=== PATIENT | female | born 1990 | race African-American/Black ===

== ENCOUNTER 2019-07-20 22:43 | Emergency (ER) | payer BC ==
[~2019-07-20] VITALS: Ht 172.7 cm; Wt 90.7 kg
[2019-07-20 23:05] VITALS: BP 131/76
[2019-07-20] MEDS ORDERED: TETRACAINE 0.5% OPHTH SOLUTION 4ML BOTTLE. OS STA (23:53)
[2019-07-20] MEDS ORDERED: FLUORESCEIN OPHTH TEST STRIP. OS STA (23:53)
--- NOTE | 2019-07-20 23:57 | PHYS DOC ---
Past Medical History Past Medical History: No Pertinent History Past Surgical History: No Surgical History Alcohol Use: Occasionally Drug Use: None Adult General Chief Complaint Chief Complaint: EYE PROBLEMS HPI HPI Patient is a 29 year old female that presents with left eye watering. The patient states that over the last 2 week she's not been no's keeper often watering. 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 She states it felt like he was getting better and has been coming and going but then earlier today of 72 got really bad and she feels that her something in her eye. Patient does not wear contacts. Review of Systems Review of Systems Constitutional: Denies fever or chills [] Eyes: Denies change in visual acuity, but reports redness and foreign body feeling. HENT: Denies nasal congestion or sore throat [] Respiratory: Denies cough or shortness of breath [] Cardiovascular: No additional information not addressed in HPI [] GI: Denies abdominal pain, nausea, vomiting, bloody stools or diarrhea [] : Denies dysuria or hematuria [] Musculoskeletal: Denies back pain or joint pain [] Integument: Denies rash or skin lesions [] Neurologic: Denies headache, focal weakness or sensory changes [] Endocrine: Denies polyuria or polydipsia [] Complete systems were reviewed and found to be within normal limits, except as documented in this note. Current Medications Current Medications Current Medications Medications (Trade) Dose Ordered Sig/Lior Start Time Stop Time Status Last Admin Dose Admin Fluorescein Sodium (Ful-Libra) 1 strip 1X STAT 07/20/19 23:53 07/20/19 23:54 UNV 07/21/19 00:07 1 STRIP Tetracaine HCl (Tetracaine) 1 drop 1X STAT 07/20/19 23:53 07/20/19 23:54 UNV 07/21/19 00:07 1 DROP Physical Exam Physical Exam Constitutional: Well developed, well nourished, no acute distress, non-toxic appearance. [] HENT: Normocephalic, atraumatic, bilateral external ears normal, oropharynx moist, no oral exudates, nose normal. [] Eyes: PERRLA, EOMI, left conjunctiva is red, no discharge. No corneal abrasion has small stye to the left lower eyelid. Neck: Normal range of motion, no tenderness, supple, no stridor. [] Skin: Warm, dry, no erythema, no rash. [] Back: No tenderness, no CVA tenderness. [] Extremities: No tenderness, no cyanosis, no clubbing, ROM intact, no edema. [] Neurologic: Alert and oriented X 3, normal motor function, normal sensory function, no focal deficits noted. [] Psychologic: Affect normal, judgement normal, mood normal. [] Current Patient Data Vital Signs Vital Signs Date Time Temp Pulse Resp B/P (MAP) Pulse Ox O2 Delivery O2 Flow Rate FiO2 07/20/19 23:05 98.6 70 16 131/76 (94) 96 Room Air 98.6 EKG EKG [] Radiology/Procedures Radiology/Procedures [] Course & Med Decision Making Course & Med Decision Making Pertinent Labs and Imaging studies reviewed. (See chart for details) Will look at eye with belcher lamp. Wood's lamp evaluation does not show corneal abrasion but shows stye on lower eyelid. Dragon Disclaimer Dragon Disclaimer This electronic medical record was generated, in whole or in part, using a voice recognition dictation system. Departure Departure Impression: Primary Impression: Hordeolum Disposition: HOME, SELF-CARE Condition: STABLE Referrals: MIRACLE ALLEN (PCP) Patient Instructions: Hitesh Additional Instructions: Thank you for visiting [facility]. We appreciate you trusting us with your care. If any additional problems come up don't hesitate to return to visit us. Please follow up with your primary care provider so they can plan additional care if needed and know about the problem that you had. If symptoms worsen come back to the Emergency Department. Any concerning symptoms that start such as chest pain, shortness of air, weakness or numbness on one side of the body, running high fevers or any other concerning symptoms return to the ER. You have been prescribed an antibiotic today to help fight your infection. Please take all of the antibiotic as directed. If after 48 hours the infection is not improving, please return for more care. If the infection worsens, return to ER for additional care. Please follow up with an eye doctor for follow up care. Scripts Erythromycin Base (Erythromycin) 1 Gm Oint...g. 1 GM OP QID for 7 Days, MISC Please use 1/2 inch of ointment in left lower eyelid. Prov: KARI CERVANTES APRN 07/21/19 Problem Qualifiers Primary Impression: Hordeolum Hordeolum type: internum Laterality: left Eyelid: lower Qualified Codes: H00.025 - Hordeolum internum left lower eyelid KARI CERVANTES APRN Jul 20, 2019 23:57
[2019-07-21] MEDS ORDERED: ERYT1OIN6 OP (00:17)
[2019-07-21] MEDS ORDERED: FLUORESCEIN OPHTH TEST STRIP. OS ONE (00:30)
[2019-07-21] MEDS ORDERED: TETRACAINE 0.5% OPHTH SOLUTION 4ML BOTTLE. OS ONE (00:30)
== END 2019-07-21 00:31 | disposition home or self-care (01) ==
LOC: ER 22:43
DX: H00.025 Hordeolum internum left lower eyelid (principal)
CPT/HCPCS: 99283